=== PATIENT | female | born 1970 | race African-American/Black ===

== ENCOUNTER 2018-12-17 07:58 | Emergency (ER) | payer OTHER ==
[2018-12-17] MEDS ORDERED: Lidocaine 1% INJ* 10 MG/ML 30 ML SDV INJ ONE (08:08)
[2018-12-17] MEDS ORDERED: NS 0.9% 1000 ML** 1,000 ML IV ONE (08:08)
[2018-12-17] MEDS ORDERED: Ondansetron INJ* 2 MG/ML VIAL IV ONE (08:09)
[2018-12-17] MEDS ORDERED: Morphine 4 MG/ML VIAL (1 ml) 4 MG/ML VIAL IV ONE (08:09)
[2018-12-17] MEDS ORDERED: Butalb/Acetamin/Caff TAB* 1 TAB PO ONE (08:21)
--- NOTE | 2018-12-17 08:25 | ED ---
Headache - HPI Summary HPI Summary: This pt is a 48 y/o female, with hx meningitis and migraines, presenting to [facility] c/o migraine headache since 3 days ago. Additionally notes photophobia, left sided jaw pain, posterior neck pain. She states she had fever and chills last night. Pt reports she has had some relief with Coca Cola and aspirin, but her symptoms will return. Denies nausea, vomiting, tooth pain, tooth swelling. Pt states her symptoms are similar to a spinal fluid leak she had several years ago after a lumbar puncture that resulted in viral meningitis. - History Of Current Complaint Chief Complaint: EDHeadache Stated Complaint: MIGRAINE PER PT Time Seen by Provider: 12/17/18 08:08 Hx Obtained From: Patient Onset/Duration: Started days ago, Still Present Timing: Days Character: Migraine Aggravating Factor: Nothing Allevating Factors: Nothing Associated Signs And Symptoms: Neck Pain, Other (Noted In Comments) - POSITIVE: photophobia, left sided jaw pain. NEGATIVE: nausea, vomiting, tooth pain, tooth swelling. - Allergies/Home Medications Allergies/Adverse Reactions: Allergies Allergy/AdvReac Type Severity Reaction Status Date / Time No Known Allergies Allergy Verified 12/17/18 08:08 Home Medications: Home Medications Cbd Sleepy Z's Gummies 1 tab PO BEDTIME PRN 12/17/18 [History Confirmed 12/17/18 ] PMH/Surg Hx/FS Hx/Imm Hx Endocrine/Hematology History: Denies: Hx Diabetes, Hx Systemic Lupus Erythematosus Cardiovascular History: Denies: Hx Congestive Heart Failure, Hx Hypertension History: Denies: Hx Dialysis, Hx Renal Disease Musculoskeletal History: Denies: Hx Rheumatoid Arthritis Neurological History: Reports: Hx Migraine, Other Neuro Impairments/Disorders - meningitis - Cancer History Hx Chemotherapy: No - Immunization History Date of Tetanus Vaccine: 2009 Date of Influenza Vaccine: NEVER Infectious Disease History: No Infectious Disease History: Denies: Traveled Outside the [place] in Last 30 Days - Family History Known Family History: Positive: Cardiac Disease - Father with fatal AK Family History: Mother with fatal PE. - Social History Alcohol Use: Rare Substance Use Type: Reports: None Smoking Status (MU): Never Smoked Tobacco Review of Systems Positive: Fever, Chills Positive: Photophobia ENT: Other - POSITIVE: left sided jaw pain Negative: Dental Pain Negative: Vomiting, Nausea Musculoskeletal: Other - POSITIVE: posterior neck pain Positive: Headache All Other Systems Reviewed And Are Negative: Yes Physical Exam - Summary Physical Exam Summary: Constitutional: Well-developed, Well-nourished, Alert. (-) Distressed Skin: Warm, Dry HENT: Normocephalic; Atraumatic Eyes: Conjunctiva normal Neck: Musculoskeletal ROM normal neck. (-) JVD, (-) Stridor Cardio: Rhythm regular, rate normal, Heart sounds normal; Intact distal pulses; Radial pulses are 2+ and symmetric. (-) Murmur Pulmonary/Chest wall: Effort normal. (-) Respiratory distress, (-) Wheezes, (-) Rales Abd: Soft, (-) tenderness, (-) Distension, (-) Guarding, (-) Rebound Musculoskeletal: (-) Edema Lymph: (-) Cervical adenopathy Neuro: Alert, Oriented x3 Psych: She is tearful and anxious Triage Information Reviewed: Yes Vital Signs On Initial Exam: Initial Vitals Temp Pulse Resp BP Pulse Ox 97.4 F 72 18 123/94 98 12/17/18 08:00 12/17/18 08:00 12/17/18 08:00 12/17/18 08:00 12/17/18 08:00 Vital Signs Reviewed: Yes Procedures - Sedation Patient Received Moderate/Deep Sedation with Procedure: No - Lumbar Puncture 1 Procedural Sedation: Obtained consent from the pt. Time out was performed. Aseptic Technique: Lidocaine Anesthesia Used: 1.0% Lido Spinal Needle Used: 22 Gauge Lumbar Puncture Note: 1 attempt Used 5 CC of 1% lidocaine Inserted needle between L4-L5 and obtained 4 tubes. 1st tube was clear and the 4th tube was light pink in color. Pt tolerated the procedure well. Diagnostics - Vital Signs Vital Signs Temp Pulse Resp BP Pulse Ox 12/17/18 08:00 97.4 F 72 18 123/94 98 - Laboratory Result Diagrams: 12/17/18 08:22 12/17/18 08:22 Lab Statement: Any lab studies that have been ordered have been reviewed, and results considered in the medical decision making process. - CT Head CTA CT Interpretation Completed By: Radiologist Summary of CT Findings: IMPRESSION: 1. No acute intracranial abnormality. 2. No acute occlusive disease or significant stenosis by NASCET criteria in the head or neck. 3. A 1 mm infundibulum near the origin of the right ophthalmic artery is favored, however, an aneurysm is not excluded. 4. Anatomic variants as above. Dr. Ng has reviewed this report. Re-Evaluation - Re-Evaluation First Eval Re-Evaluation Time: 08:54 Comment: Pt is agreeable to an LP. Second Eval Re-Evaluation Time: 13:41 Change: Improved Comment: Pt feels better. We will consult neurosurgery in [place]. Third Eval Re-Evaluation Time: 14:44 Comment: [place] called, they have not received the images. Will send to [facility]. Fourth Eval Re-Evaluation Time: 16:01 Change: Improved - feeling much better, ambulating in ED. Updated on results and can f/u outpatient Headache Course/Dx - Course Course Of Treatment: 48 y/o F w hx meningitis, migraines p/w headache for 4 days. - patient states similar to prior meningitis. No current fever or infectious symptoms (did have tactile fever yest) Given hx will check labs, LP. - ddx includes migraine, meniningitis, SAH (although not wose h/a, has been persistent) - Diagnoses Provider Diagnoses: Headache - Physician Notifications Discussed Care Of Patient With: Opal Ortiz Time Discussed With Above Provider: 11:35 Instructed by Provider To: Other - Discussed with Dr. Ortiz, neurologist, who recommends a brain CT and CTA. [13:43] Spoke with [facility] and they will have a neurosurgeon take a look and call back. [16:16] Discussed with Dr. Roni Zamora, neurosurgeon from [facility], it is not believed her LP results or imaging is consistent with a subarachnoid. She recommends follow up at the neurosurgery clinic as an outpatient. Dr. Ortiz also saw patient at bedside and agrees presentation c/w migraine. Discharge ED - Sign-Out/Discharge Documenting (check all that apply): Patient Departure - Discharge home - Discharge Plan Condition: Stable Disposition: HOME Patient Education Materials: Acute Headache (ED) Referrals: Awilda Falcon MD [Primary Care Provider] - Additional Instructions: You were seen in the emergency department for a headache. Your CT scan showed a possible small aneurysm near ophthalmic artery. We discussed our on-call neurosurgeon who said you can follow up outpatient the office. Your lumbar puncture results were not consistent with meningitis If any studies were not completed at the time of discharge you will be called with the relevant results. Please follow up with your primary care doctor in next 2-3 days and return to emergency department for worsening headaches, passing out, confusion or concerning symptoms. It was a pleasure taking care of you today. [facility] [address] [place] [address] - Billing Disposition and Condition Condition: STABLE Disposition: Home - Attestation Statements Document Initiated by Scribe: Yes Documenting Scribe: Ashli Greer Provider For Whom Taina is Documenting (Include Credential): Dionicio Ng MD Scribe Attestation: I, Ashli Greer, scribed for Dionicio Ng MD on 12/18/18 at 1050. Scribe Documentation Reviewed: Yes Provider Attestation: The documentation as recorded by the Ashli rogers accurately reflects the service I personally performed and the decisions made by me, Dionicio Ng MD Status of Scribe Document: Viewed
[2018-12-17 08:35] LABS: Hematocrit 39 % (35-47); Hemoglobin 12.8 g/dL (12.0-16.0); Mean Corpuscular HGB Conc 33 g/dL (31-36); Mean Corpuscular Hemoglobin 25 pg (27-31); Mean Corpuscular Volume 75 fL (80-97); Mean Platelet Volume 10.1 fL (7.4-10.4); Platelet Count 141 10^3/uL (150-450); Red Blood Count 5.17 10^6 /uL (3.70-4.87); Red Cell Distribution Width 14 % (10-15); White Blood Count 3.3 10^3/uL (3.5-10.8)
[2018-12-17 08:49] LABS: Albumin 4.3 g/dL (3.2-5.2); Albumin/Globulin Ratio 1.2 (1-3); BUN/Creatinine Ratio 11.5 (8-20); Calcium 9.4 mg/dL (8.6-10.3); EGFR African American 84.1 (>60); EGFR Non-African American 69.5 (>60); Globulin 3.6 g/dL (2-4); Potassium 3.8 mmol/L (3.5-5.0); Total Bilirubin 0.6 mg/dL (0.2-1.0); Total Protein 7.9 g/dL (6.4-8.9)
[2018-12-17 08:50] LABS: INR 1.05 (0.82-1.09)
[2018-12-17] MEDS ORDERED: LORazepam INJ* 2 MG/ML 1 ML VIAL IV PUSH ONE (08:54)
[2018-12-17] MEDS ORDERED: Lorazepam PYXIS KEY PRN (08:54)
[2018-12-17 09:29] LABS: ABS Eosinophils 0.1 10^3/ul (0-0.6); ABS Lymphocytes 1.4 10^3/ul (1.0-4.8); ABS Monocytes 0.4 10^3/ul (0-0.8); ABS Neutrophils 1.4 10^3/ul (1.5-7.7); Eosinophil % 2.1 %; Lymphocyte % 41.6 %; Nucleated Red Blood Cells % 0.2
[2018-12-17 10:03] LABS: Body Fluid Source Cerebral Spinal
[2018-12-17 10:22] LABS: CSF Glucose 58 mg/dL (40-70)
[2018-12-17] MEDS ORDERED: Magnesium Sulfate 1 GM IV* 1 GM/100 ML BAG IV ONE (11:37)
[2018-12-17 11:49] LABS: Body Fluid Source Cerebral Spinal
[2018-12-17] MEDS ORDERED: Iohexol 350* (CONTRAST) 500 ML MDV IV ONE (12:22)
[2018-12-17 13:22] LABS: Body Fluid Mono 50 %
[2018-12-17 16:47] VITALS: BP 114/75
--- NOTE | 2018-12-17 20:54 | CONS ---
NEUROLOGY CONSULTATION NOTE: DATE OF CONSULT: 12/17/18 - EMERGENCY DEPT CONSULTING PROVIDER: Dr. Dionicio Ng. REASON FOR CONSULT: Headache. CHIEF COMPLAINT: Headache. HISTORY OF PRESENT ILLNESS: Ms. Bass is a 48-year-old female with history of migraine headaches, viral meningitis, transient right leg weakness of unknown etiology in [id number], who presented to [facility] with a 4-day history of migraine headache. The patient stated that this is typical for her migraine, but the pain is not going away. This is not the worst headache of her life. The patient stated that on Friday morning the patient noticed a gradual onset pain mostly involving the frontal area of the head. The pain is radiating to the occipital region. The pain is 8/10 in severity. She has associated symptoms of retroorbital pain. There is pressure behind the eyes. The pain is described as dull and pressure sensation. Usually, she takes BC powder and the pain goes away, but she has taken approximately 4 tablets of the BC powder with soda and the pain persists. The patient has associated symptoms of photo and phonophobia. She vomited yesterday. She has nausea. She has a strong family history of migraine. Coughing, sneezing, straining or doing any other Valsalva maneuvers does not exacerbate the pain. The patient received a combination of Fioricet, lorazepam, magnesium. She also received a liter of fluid. The patient's headaches have resolved. A lumbar puncture was done and showed positive RBCs on tube 1, with 139 in tube 2, showed RBCs of 2030 in tube 3. The total protein is 33, glucose 58, total cell count of 4, WBC of 0. PAST MEDICAL HISTORY: Migraine headaches, viral meningitis, marijuana use. MEDICATIONS: Home medications: 1. Valacyclovir 1 g p.o. daily. 2. Multivitamins. ALLERGIES: No known drug allergies. SOCIAL HISTORY: The patient lives alone. 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 She smokes marijuana daily, usually takes 1 puff before going to sleep. 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 She did grow up in [place]. REVIEW OF SYSTEMS: A 14-point review of systems was obtained and otherwise negative except for what was mentioned in the HPI. The patient's headache has resolved. PHYSICAL EXAM: Vitals: Temperature of 97.4, pulse of 72, respiratory rate of 18, oxygen saturation of 98%, blood pressure of 123/94. General: The patient is resting comfortably, in no acute distress. She denied any current headaches. The patient is an overly thin female. Head: Atraumatic, normocephalic without any obvious abnormality. No nuchal rigidity. Neck is supple and symmetrical with no carotid bruits. No tenderness to the occipital notch region. Normal superficial temporal artery pulsation. Cardiac: Regular rate and rhythm with normal S1, S2. Respiratory: Clear to auscultation bilaterally with no wheezing or rhonchi. Extremities: Normal range of motion with no cyanosis or edema. Skin: No skin lesions or lacerations. Psych: Affect is broad, normal mood. Easy to establish rapport. Neurological Examination: Mental Status: Awake, alert, and oriented to person, place, time , and general circumstances. The patient's speech, language, and comprehension were assessed and found to be normal. Cranial Nerves: Pupils are equal, round , and reactive to light. Extraocular muscles are intact. There is no facial asymmetry. Funduscopic examination did not reveal any hemorrhage and normal disc margins bilaterally. Motor Examination: 5/5 strength in the upper and lower extremities bilaterally. Sensation is intact to light touch throughout. Normal vibration at the toes. Reflexes 2+ in the biceps, triceps, brachioradialis, knees, and ankles bilaterally. Coordination: Normal finger-to -nose and heel-to- curtis testing. Gait: Normal stance and gait with no ataxia. DIAGNOSTIC STUDIES: CTA of the head and neck showed no acute intracranial abnormality, no acute occlusive disease. She had a 1 mm infundibulum near the origin of the right ophthalmic artery that is favored; however, an aneurysm is not excluded, anatomical variation as mentioned above. ASSESSMENT AND RECOMMENDATIONS: Ms. Moshe Bass is a 48-year-old female with a history of migraine headache, who presented with status migrainosus. On examination, the patient has no focal neurological deficits. Funduscopic examination is normal. She had a CTA that showed 1 mm infundibulum in the right , but an aneurysm could not be excluded. There was a question regarding the CSF RBCs which showed initially on tube 1 only 200 RBCs and then tube 3 had 2000 RBCs. I suspect this is traumatic as subarachnoid hemorrhage would have a consistency elevated RBC count. Plus the CT and CTA head and neck did not show any evidence of any hemorrhage. The patient is not having the worse headache of her life. She has no neurological deficits. The patient even reported that this is typical for her migraine, but it is not going away over the past few days. Therefore, currently, the patient is asymptomatic and not complaining of any headaches. I would recommend continuing magnesium oxide 400 mg supplementation daily. I recommend the patient to follow up with us as an outpatient. I do not recommend any further workup here, but if she has any worsening headaches or focal neurological deficits, she was instructed to come back to the ER immediately. I discussed the case with Dr. Ng, who discussed the CTA and lumbar puncture results with Neurosurgery at [facility]. Apparently, a followup with Neurosurgery as an outpatient is recommended for the infundibulum/small possible 1 mm aneurysm. I do recommend following up with us in 4 to 6 weeks. [id number]/[facility] #: [id number] LAUREN
[2018-12-19 00:34] LABS: HSV 1 PCR, CSF Negative (Negative); HSV 2 PCR, CSF Negative (Negative)
== END 2018-12-17 16:40 | disposition home or self-care (01) ==
LOC: ED 07:58
DX: R51 Headache (principal); Z79.899 Other long term (current) drug therapy
CPT/HCPCS: 36415; 62270; 70496; 70498; 80053; 82945; 84157; 85025; 85610; 87070; 87205; 87529; 89051; 96361; 96365; 96375; 99284; A9270-GY; J2060; J2270; J2405; J3475; Q9967